=== PATIENT | female | born 1985 | race Caucasian/White ===

== ENCOUNTER 2016-10-24 22:47 | Emergency (ER) | payer MEDICAID ==
[2016-10-25 00:18] VITALS: BP 120/74
== END 2016-10-25 00:18 | disposition home or self-care (01) ==
LOC: ED 22:47
DX: M25.571 Pain in right ankle and joints of right foot (principal); W50.1XXA Accidental kick by another person, initial encounter; Y93.66 Activity, soccer; Y92.322 Soccer field as the place of occurrence of the external cause; Y99.8 Other external cause status

== ENCOUNTER 2017-03-05 15:50 | Emergency (ER) | payer OTHER ==
[~2017-03-05] VITALS: Ht 162.6 cm; Wt 66.7 kg
[2017-03-05 16:13] VITALS: BP 113/74; Ht 162.6 cm; Wt 66.7 kg
== END 2017-03-05 17:18 | disposition home or self-care (01) ==
LOC: ED 15:50
DX: S16.1XXA Strain of muscle, fascia and tendon at neck level, initial encounter (principal); V49.9XXA Car occupant (driver) (passenger) injured in unspecified traffic accident, initial encounter; Y93.89 Activity, other specified; Y92.89 Other specified places as the place of occurrence of the external cause; Y99.8 Other external cause status

== ENCOUNTER 2018-02-21 19:18 | Emergency (ER) | payer MEDICAID ==
[~2018-02-21] VITALS: Ht 162.6 cm; Wt 62.6 kg
[2018-02-21 19:45] VITALS: Ht 162.6 cm; Wt 62.6 kg
[2018-02-21 20:58] VITALS: BP 108/75
== END 2018-02-21 20:58 | disposition home or self-care (01) ==
LOC: ED 19:18
DX: J06.9 Acute upper respiratory infection, unspecified (principal)
CPT/HCPCS: J1885; Q0162

== ENCOUNTER 2018-03-20 16:10 | Emergency (ER) | payer MEDICAID ==
[~2018-03-20] VITALS: Ht 162.6 cm; Wt 63.5 kg
[2018-03-20 16:31] VITALS: Ht 162.6 cm; Wt 63.5 kg
[2018-03-20 19:07] VITALS: BP 139/94
== END 2018-03-20 19:07 | disposition home or self-care (01) ==
LOC: ED 16:10
DX: S63.501A Unspecified sprain of right wrist, initial encounter (principal); S00.03XA Contusion of scalp, initial encounter; S20.219A Contusion of unspecified front wall of thorax, initial encounter; S09.8XXA Other specified injuries of head, initial encounter; W20.8XXA Other cause of strike by thrown, projected or falling object, initial encounter; Y93.89 Activity, other specified; Y92.89 Other specified places as the place of occurrence of the external cause; Y99.8 Other external cause status

== ENCOUNTER 2018-03-22 18:54 | Emergency (ER) | payer MEDICAID ==
[~2018-03-22] VITALS: Ht 162.6 cm; Wt 65.8 kg
[2018-03-22 19:23] VITALS: BP 127/83; Ht 162.6 cm; Wt 65.8 kg
== END 2018-03-22 21:42 | disposition left against medical advice (07) ==
LOC: ED 18:54
DX: Z53.21 Procedure and treatment not carried out due to patient leaving prior to being seen by health care provider (principal)

== ENCOUNTER 2018-04-10 07:45 | Emergency (ER) | payer MEDICAID ==
[~2018-04-10] VITALS: Ht 162.6 cm; Wt 65.8 kg
[2018-04-10 07:51] VITALS: BP 132/86; Ht 162.6 cm; Wt 65.8 kg
[2018-04-10 08:38] LABS: UA SPECIFIC GRAVITY <=1.005 (1.005-1.035); microscopic required? YES; urine erythrocyte 3+ (NEGATIVE)
== END 2018-04-10 09:41 | disposition home or self-care (01) ==
LOC: ED 07:45
DX: N39.0 Urinary tract infection, site not specified (principal); F17.210 Nicotine dependence, cigarettes, uncomplicated
CPT/HCPCS: J0696

== ENCOUNTER 2018-05-22 11:57 | Emergency (ER) | payer MEDICAID ==
[~2018-05-22] VITALS: Ht 162.6 cm; Wt 64.4 kg
[2018-05-22 12:42] VITALS: BP 134/94; Ht 162.6 cm; Wt 64.4 kg
== END 2018-05-22 14:47 ==
LOC: ED 11:57
DX: S40.022A Contusion of left upper arm, initial encounter (principal); F17.210 Nicotine dependence, cigarettes, uncomplicated; W01.0XXA Fall on same level from slipping, tripping and stumbling without subsequent striking against object, initial encounter; Y93.89 Activity, other specified; Y92.89 Other specified places as the place of occurrence of the external cause; Y99.8 Other external cause status

== ENCOUNTER 2018-10-15 22:01 | Emergency (ER) | payer OTHER, MEDICAID ==
[~2018-10-15] VITALS: Ht 162.6 cm; Wt 76.2 kg
[2018-10-15 22:24] VITALS: Ht 162.6 cm; Wt 76.2 kg
[2018-10-15 23:18] LABS: BASOPHIL % 0.4 % (0-2); PLATELET COUNT 263 x10^3mcL (130-400)
[2018-10-15 23:21] LABS: RED CELL DISTRIBUTION WIDTH 14.6 % (11.5-14.5)
[2018-10-16 02:55] VITALS: BP 128/84
== END 2018-10-16 02:55 | disposition home or self-care (01) ==
LOC: ED 22:01
DX: N93.9 Abnormal uterine and vaginal bleeding, unspecified (principal); N39.0 Urinary tract infection, site not specified
CPT/HCPCS: 36415; Q0092